=== PATIENT | female | born 1985 | race Hispanic/Latino ===

== ENCOUNTER 2018-05-11 21:16 | Emergency (ER) | payer OTHER ==
[~2018-05-11] VITALS: Ht 172.7 cm; Wt 86.2 kg
--- OUTSIDE RECORDS SUMMARY | 2018-05-11 21:18 | XMS REPORT ---
Author Author Admin, [place] Organization [facility] Address [address] [place] [address] Phone Allergies, Adverse Reactions, Alerts Allergy Name Reaction Description Start Date Severity Status Provider No Known Allergies Leidy Colvin PASSENGER REPRESENTATIVE Conditions or Problems Problem Name Problem Code Onset Date Status Entry Date Provider Comment Standard Description Annotate URI (upper respiratory infection) 465.9 Active Liat Solis MD Acute upper respiratory infections of unspecified site 10 weeks gestation of V28.9 Active Liat Solis MD Encounter for unspecified screening of mother Fibroid? 215.9 Active Liat Solis MD Other benign neoplasm of connective and other soft tissue, site unspecified Miscarriage; h/o SAB first tri x 2 634.90 Active Liat Solis MD Spontaneous , unspecified, without mention of complication Supervision of normal first , first trimester V22.0 Active Liat Solis MD Supervision of normal first Secondary amenorrhea 626.0 Inactive Liat Solis MD Absence of menstruation Medication List Medication Instructions Start Date Stop Date Generic Name NDC Status Provider Patient Instruction No Drug Therapy Prescribed - none known did ask Liat Solis MD Diagnostic Results Date Name Value Unit Range Description Lab Report: CBC With Differential/Platelet, ABO Grouping and Rho(D) Typi ... - Blood bank Rh antibody Negative Negative Lab Report: FSH and LH, Hemoglobin A1c, DHEA-Sulfate, Testosterone, Seru ... - Chemistry thyroid stimulating hormone, serum 1.500 u[iU]/mL 0.450-4.500 prolactin, serum 16.9 ng/mL 4.8-23.3 human chorionic gonadotropin, total, serum <1 mIU/mL m[iU]/mL follicle stimulating hormone, serum 4.4 m[iU]/mL Lab Report: CBC With Differential/Platelet, ABO Grouping and Rho(D) Typi ... - Blood bank ABO blood group B Office Visit: Initial Visit RM# 21 - Chemistry beta HCG, urine, semiquantitative positive Lab Report: FSH and LH, Hemoglobin A1c, DHEA-Sulfate, Testosterone, Seru ... - Chemistry testosterone, total 16 ng/dL 8-48 Lab Report: CBC With Differential/Platelet, ABO Grouping and Rho(D) Typi ... - Chemistry hepatitis B surface antigen Negative Negative Office Visit: Initial Visit RM# 21 - Urinalysis leukocyte esterase, urine, by dipstick trace Lab Report: CBC With Differential/Platelet, ABO Grouping and Rho(D) Typi ... - Hematology mean corpuscular hemoglobin concentration, RBC 34.4 G/DL % 31.5-35.7 erythrocyte (RBC) count 3.94 X10E6/UL 10*6/mm3 3.77-5.28 Office Visit: Initial Visit RM# 21 - Urinalysis nitrite, urine, semiquantitative negative urine color yellow Lab Report: CBC With Differential/Platelet, ABO Grouping and Rho(D) Typi ... - Chemistry Absolute Neutrophils 5.0 X10E3/UL 10*3/uL 1.4-7.0 Office Visit: Initial Visit RM# 21 - Urinalysis bilirubin, urine negative Lab Report: CBC With Differential/Platelet, ABO Grouping and Rho(D) Typi ... - Hematology mean corpuscular volume, RBC 90 fL 79-97 monocytes as percent of blood leukocytes 13 % Not Estab. Eosinophil Absolute Count 0.0 X10E3/UL 10*3/uL 0.0-0.4 Office Visit: Initial Visit RM# 21 - Urinalysis appearance, urine clear blood in urine (hemoglobin) by dipstick non-hemolyzed trace Lab Report: CBC With Differential/Platelet, ABO Grouping and Rho(D) Typi ... - Hematology red blood cell distribution width 13.0 % 12.3-15.4 leukocyte count, blood 7.2 X10E3/UL 10*3/mm3 3.4-10.8 Office Visit: Initial Visit RM# 21 - Urinalysis pH, urine, semiquantitative 6.5 Office Visit: Initial Visit RM# 21 - Supervisor Felling Bucking estimated delivery date by last menstrual period 09/19/2017 Lab Report: CBC With Differential/Platelet, ABO Grouping and Rho(D) Typi ... - Chemistry immature granulocytes, percentage of total cells, blood 0 % Not Estab. Lab Report: CBC With Differential/Platelet, ABO Grouping and Rho(D) Typi ... - Hematology lymphocyte count, blood, automated 1.3 X10E3/UL 10*3/mm3 0.7-3.1 hematocrit, blood 35.5 % 34.0-46.6 Lab Report: Urine Culture, Routine, Result - Urinalysis urine culture No growth Lab Report: CBC With Differential/Platelet, ABO Grouping and Rho(D) Typi ... - Hematology neutrophils as percent of blood leukocytes 69 % Not Estab. basophils as percent of blood leukocytes 0 % Not Estab. Office Visit: Initial Visit RM# 21 - Urinalysis protein, urine, semiquantitative (dipstick) trace Lab Report: CBC With Differential/Platelet, ABO Grouping and Rho(D) Typi ... - Serology rapid plasma reagin antibody, serum Non Reactive Non Reactive Lab Report: CBC With Differential/Platelet, ABO Grouping and Rho(D) Typi ... - Hematology mean corpuscular hemoglobin, RBC 31.0 pg 26.6-33.0 Office Visit: Initial Visit RM# 21 - Urinalysis specific gravity, urine 1.015 Lab Report: FSH and LH, Hemoglobin A1c, DHEA-Sulfate, Testosterone, Seru ... - Chemistry dehydroepiandrosterone sulfate, serum 142.2 ug/dL 84.8-378.0 Lab Report: CBC With Differential/Platelet, ABO Grouping and Rho(D) Typi ... - Hematology hemoglobin, blood 12.2 g/dL 11.1-15.9 Lab Report: CBC With Differential/Platelet, ABO Grouping and Rho(D) Typi ... - Blood bank Rh antigen Positive Lab Report: FSH and LH, Hemoglobin A1c, DHEA-Sulfate, Testosterone, Seru ... - Chemistry 17-hydroxyprogesterone, serum or plasma 21 ng/dL Lab Report: CBC With Differential/Platelet, ABO Grouping and Rho(D) Typi ... - Hematology lymphocytes as percent of blood leukocytes 18 % Not Estab. Internal Correspondence: OB Care Coordination: - Supervisor Felling Bucking estimated date of confinement , mother of baby - Lab Report: FSH and LH, Hemoglobin A1c, DHEA-Sulfate, Testosterone, Seru ... - Chemistry hemoglobin A1C, blood, as % of total hemoglobin 4.9 % 4.8-5.6 Office Visit: Initial Visit RM# 21 - Urinalysis glucose, urine, semiquantitative trace Lab Report: CBC With Differential/Platelet, ABO Grouping and Rho(D) Typi ... - Hematology basophil count, absolute 0.0 x10E3/uL 0.0-0.2 Lab Report: FSH and LH, Hemoglobin A1c, DHEA-Sulfate, Testosterone, Seru ... - Chemistry luteinizing hormone, serum 4.4 m[iU]/mL Lab Report: CBC With Differential/Platelet, ABO Grouping and Rho(D) Typi ... - Hematology eosinophils as percent of blood leukocytes 0 % Not Estab. Office Visit: Initial Visit RM# 21 - Urinalysis urobilinogen, urine, semiquantitative (dipstick) negative Lab Report: CBC With Differential/Platelet, ABO Grouping and Rho(D) Typi ... 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
[2018-05-11] MEDS ORDERED: DIPHENHYDRAMINE HCL INJ 50 MG/ML VIAL IV STA (21:50)
[2018-05-11] MEDS ORDERED: DEXAMETHASONE 10MG/ML PF INJ IV ONE (22:00)
[2018-05-11] MEDS ORDERED: SODIUM CHLORIDE 0.9% 1000ML 1,000 ML IV SCH (22:00)
[2018-05-11] MEDS ORDERED: ACETAMINOPHEN 325 MG TAB PO ONE (22:00)
[2018-05-11] MEDS ORDERED: METOCLOPRAMIDE HCL 10 MG/2ML VIAL IV ONE (22:00)
[2018-05-11] MEDS ORDERED: POTASSIUM CHLORIDE 20 MEQ TAB CR PO STA (22:51)
--- NOTE | 2018-05-11 23:01 | Diagnostic Imaging Report ---
Exam: Head CT without contrast History: Headache, left-sided facial pain x4 days Comparison studies: None Technique: Axial images were obtained from the skull base to the vertex. Coronal and sagittal images reconstructed from the axial data. Dose modulation, iterative reconstruction, and/or weight based adjustment of the mA/kV was utilized to reduce the radiation dose to as low as reasonably achievable. Radiation dose: Total DLP: 969. mGy*cm. Estimated effective dose: DLP x 0.015 Intravenous contrast: None Findings: Scalp: No abnormalities. Bones: No fractures, blastic or lytic lesions. Brain sulci: Appropriate for age. Ventricles: Normal in size and configuration. No hydrocephalus. Extra-axial spaces: No masses, no fluid collection. Parenchyma: No abnormal densities. No masses, acute hemorrhage, acute or chronic vascular insults. Sellar/suprasellar region: No abnormalities. Craniocervical junction: Patent foramen magnum. No Chiari one malformation. Included paranasal sinuses: Left frontal sinus and anterior ethmoids are partially opacified and the right frontoethmoidal recess is obstructed. IMPRESSION: 1. No acute intracranial abnormalities. 2. Left frontoethmoidal paranasal sinus inflammatory changes. Signed by: Dr. Toni Ibanez M.D. on 05/11/2018 10:58 PM
== END 2018-05-11 23:39 | disposition home or self-care (01) ==
LOC: FSED 21:16
DX: G44.211 Episodic tension-type headache, intractable (principal); J01.20 Acute ethmoidal sinusitis, unspecified; J01.10 Acute frontal sinusitis, unspecified
CPT/HCPCS: 70450; 80053; 81003; 81025; 85025; 99283